=== PATIENT | female | born 1980 | race Caucasian/White ===

== ENCOUNTER 2016-10-07 11:06 | Inpatient (IN) | payer OTHER ==
[2016-10-07 11:06] VITALS: BMI 26.6
--- NOTE | 2016-10-07 11:49 | ED PDOC ---
HPI: Psych/Substance Abuse Time Seen by Provider: 10/07/16 11:16 Chief Complaint (Nursing): Psychiatric Evaluation Chief Complaint (Provider): psychiatric evaluation History Per: Patient History/Exam Limitations: no limitations Additional Complaint(s): Gibson Mccall is a 36 year old female, with a previous medical history of depression and ADHD with accordance to previous charts, who presents to the ED with complaints of anxiety and feeling uneasy. She reports feeling like "something was going to happen to her" which prompted ED visit. Patient reports suicidal ideation with a plan to overdose. Patient believes her medications are not working. PMD: none provided Past Medical History Reviewed: Historical Data, Nursing Documentation, Vital Signs Vital Signs: Last Vital Signs Temp 98.9 F 10/07/16 11:07 Pulse 84 10/07/16 11:07 Resp 19 10/07/16 11:07 BP 123/67 10/07/16 11:07 Pulse Ox 98 10/07/16 11:07 - Medical History PMH: Denies: Anxiety (Denies), Bipolar Disorder (Denies), Depression (Denies), Personality Disorder, Chronic Kidney Disease, Schizophrenia, Sexually Transmitted Disease - Family History Family History: States: Unknown Family Hx - Home Medications Home Medications: Ambulatory Orders Medication Instructions Recorded Benztropine [Cogentin] 1 mg PO BID #60 tab 09/27/16 Haloperidol [Haldol] 10 mg PO BID #60 tab 09/27/16 Merna Carbonate [Merna 600 mg PO BID #60 cap 09/27/16 Carbonate 300MG] traZODone [Desyrel] 100 mg PO HS #30 tab 09/27/16 - Allergies Allergies/Adverse Reactions: Allergies Allergy/AdvReac Type Severity Reaction Status Date / Time amphetamine [From Adderall] Allergy FATIGUE Verified 10/07/16 11:11 dextroamphetamine Allergy FATIGUE Verified 10/07/16 11:11 [From Adderall] Sulfa (Sulfonamide Allergy RASH Verified 10/07/16 11:11 Antibiotics) topiramate [From Topamax] AdvReac DIZZINESS Verified 10/07/16 11:11 Review of Systems ROS Statement: Except As Marked, All Systems Reviewed And Found Negative Psych: Positive for: Anxiety, Suicidal ideation Physical Exam - Reviewed Nursing Documentation Reviewed: Yes Vital Signs Reviewed: Yes - Physical Exam Appears: Positive for: Well, Non-toxic, No Acute Distress Head Exam: Positive for: ATRAUMATIC, NORMAL INSPECTION, NORMOCEPHALIC Skin: Positive for: Normal Color, Warm, DRY Eye Exam: Positive for: EOMI, Normal appearance, PERRL ENT: Positive for: Normal ENT Inspection Neck: Positive for: Normal, Painless ROM Cardiovascular/Chest: Positive for: Regular Rate, Rhythm Respiratory: Positive for: CNT, Normal Breath Sounds Gastrointestinal/Abdominal: Positive for: Normal Exam, Bowel Sounds, Soft Back: Positive for: Normal Inspection Extremity: Positive for: Normal ROM Neurologic/Psych: Positive for: Alert, Oriented, Mood/Affect (flat) - Laboratory Results Result Diagrams: 10/07/16 12:15 10/07/16 12:15 - ECG O2 Sat by Pulse Oximetry: 98 (RA) Pulse Ox Interpretation: Normal Medical Decision Making Medical Decision Making: Initial Impression: psychiatric evaluation Initial Plan: * acetaminophen * alcohol serum * urine drug screen * lithium * salicylate * urine * urine dipstick * urinalysis * reevaluation MEDICAL CLEARANCE Pt medically cleared for psychiatric admission. Scribe Attestation: Documented by Ashwini Harvey, acting as a scribe for Ashwini Diehl MD. Provider Scribe Attestation: All medical record entries made by the Scribe were at my direction and personally dictated by me. I have reviewed the chart and agree that the record accurately reflects my personal performance of the history, physical exam, medical decision making, and the department course for this patient. I have also personally directed, reviewed, and agree with the discharge instructions and disposition. Disposition - Clinical Impression Clinical Impression: Schizoaffective disorder - Patient ED Disposition Is Patient to be Admitted: Yes - Disposition Disposition Time: 13:10 Condition: STABLE - Pt Status Changed To: Hospital Disposition Of: Inpatient - Admit Certification Admit to Inpatient:: After my assessment, the patient will require hospitalization for at least two midnights. This is because of the severity of symptoms shown, intensity of services needed, and/or the medical risk in this patient being treated as an outpatient. - POA Present On Arrival: None
[2016-10-07 12:38] LABS: BASO # 0.1 K/uL (0.0-0.2); BASO % 0.5 % (0.0-2.0); EOS # 0.3 K/uL (0.0-0.7); EOS % 2.8 % (0.0-4.0); HEMATOCRIT 37.7 % (34.0-47.0); LYMPH # 1.5 K/uL (1.0-4.3); LYMPH % 12.5 % (20.0-40.0); MEAN CORPUSCULAR HEMOGLOBIN 28.3 pg (27.0-31.0); MEAN CORPUSCULAR HGB CONC 33.3 g/dL (33.0-37.0); MEAN PLATELET VOLUME 8.7 fl (7.2-11.7); MONO # 0.5 K/uL (0.0-0.8); MONO % 4.4 % (0.0-10.0); NEUT # 9.4 K/uL (1.8-7.0); NEUT % 79.8 % (50.0-75.0); NRBC % 0.1 % (0.0-0.0); RBC URINE 1 /hpf (0-3); RED CELL DISTRIBUTION WIDTH 13.9 % (11.5-14.5); URINE BACTERIA MANY (<OCC); URINE BILIRUBIN NEGATIVE (NEGATIVE); URINE BLOOD NEGATIVE (NEGATIVE); URINE COLOR STRAW (YELLOW); URINE GLUCOSE (UA) NEG (Normal); URINE KETONE NEGATIVE (NEGATIVE); URINE LEUKOCYTE ESTERASE TRACE Leu/uL (Negative); URINE PROTEIN NEGATIVE (NEGATIVE); URINE UROBILINOGEN 0.2-1.0 mg/dL (0.2-1.0); WBC URINE 2 /hpf (0-5); WHITE BLOOD COUNT 11.8 K/uL (4.8-10.8)
[2016-10-07 12:54] LABS: ALB/GLOB RATIO 1.3 (1.0-2.1); ALCOHOL SERUM < 10 mg/dl (0-10); ALKALINE PHOSPHATASE 82 U/L (38-126); ALT/SGPT 34 U/L (9-52); AST/SGOT 18 U/L (14-36); BILIRUBIN,TOTAL 0.4 mg/dl (0.2-1.3); BLOOD UREA NITROGEN 9 mg/dl (7-17); CALCIUM 9.9 mg/dL (8.4-10.2); CARBON DIOXIDE 24 mmol/L (22-30); CHLORIDE 104 mmol/L (98-107); GFR AFRICAN-AMERICAN > 60; GLUCOSE,RANDOM 108 mg/dL (65-105); LITHIUM 0.8 MMOL/L (0.6-1.2); POTASSIUM 4.3 MMOL/L (3.6-5.0); SODIUM 139 mmol/l (132-148); TOTAL PROTEIN 8.7 G/DL (6.3-8.2)
[2016-10-07 13:35] VITALS: O2SAT 100
[2016-10-07] MEDS ORDERED: Magnesium Hydroxide Susp 30 ml UD PO PRN (14:52)
[2016-10-07] MEDS ORDERED: DiphenhydrAMINE 50 mg/ml Inj IM PRN (14:52)
[2016-10-07] MEDS ORDERED: Alum-Mag Hydrox-Simethicone Susp (30 mL) PO PRN (14:52)
[2016-10-08 08:22] LABS: T4 7.51 ug/dl (5.5-11.0)
[2016-10-08 08:36] LABS: THYROID STIMULATING HORMONE 2.98 mIU/ML (0.46-4.68)
--- NOTE | 2016-10-08 11:22 | CP.PCM.CON ---
History of Present Illness - History of Present Illness History of Present Illness: 36 yo female with history of Depression admitted to psyche unit because of suicidal ideation. Review of Systems - Review of Systems All systems: reviewed and no additional remarkable complaints except (aside from those mentioned above, 12 point system review were negative by me) Past Patient History - Tetanus Immunizations Tetanus Immunization: Unknown - Past Medical History & Family History Past Family History: Reviewed and not pertinent - Past Social History Smoking Status: Never Smoked Alcohol: None Drugs: Denies - CARDIAC Hx Cardiac Disorders: No Hx Hypertension: No - PULMONARY Hx Respiratory Disorders: No Hx Tuberculosis: No - NEUROLOGICAL Hx Neurological Disorder: No HX Cerebrovascular Accident: No Hx Seizures: No - HEENT Hx HEENT Problems: No - RENAL Hx Chronic Kidney Disease: No - ENDOCRINE/METABOLIC Hx Endocrine Disorders: No - HEMATOLOGICAL/ONCOLOGICAL Hx Blood Disorders: No Hx Cancer: No Hx Human Immunodeficiency Virus (HIV): No - INTEGUMENTARY Hx Dermatological Problems: No - MUSCULOSKELETAL/RHEUMATOLOGICAL Hx Musculoskeletal Disorders: No - GASTROINTESTINAL Hx Gastrointestinal Disorders: No - GENITOURINARY/GYNECOLOGICAL Hx Genitourinary Disorders: No Hx Sexually Transmitted Disorders: No - PSYCHIATRIC Hx Anxiety: Yes Hx Substance Use: No - SURGICAL HISTORY Hx Surgeries: No - ANESTHESIA Hx Anesthesia: No Meds Allergies/Adverse Reactions: Allergies Allergy/AdvReac Type Severity Reaction Status Date / Time amphetamine [From Adderall] Allergy FATIGUE Verified 10/07/16 11:11 dextroamphetamine Allergy FATIGUE Verified 10/07/16 11:11 [From Adderall] Sulfa (Sulfonamide Allergy RASH Verified 10/07/16 11:11 Antibiotics) topiramate [From Topamax] AdvReac DIZZINESS Verified 10/07/16 11:11 - Medications Medications: Current Medications Acetaminophen (Tylenol 325mg Tab) 650 mg PO Q4 PRN PRN Reason: pain Al Hydrox/Mg Hydrox/Simethicone (Maalox Plus 30 Ml) 30 ml PO Q4 PRN PRN Reason: Dyspepsia Benztropine Mesylate (Cogentin) 1 mg PO BID HERNAN Last Admin: 10/08/16 08:58 Dose: 1 mg Diphenhydramine HCl (Benadryl) 50 mg IM Q6 PRN PRN Reason: Extrapyramidal S/S Unable PO Diphenhydramine HCl (Benadryl) 50 mg PO HS PRN PRN Reason: Sleep Last Admin: 10/07/16 18:00 Dose: 50 mg Haloperidol (Haldol) 5 mg PO Q4 PRN PRN Reason: Agitation Haloperidol (Haldol) 10 mg PO BID [facility] Last Admin: 10/08/16 08:52 Dose: 10 mg [place] Carbonate ([place] Carbonate 300mg) 600 mg PO BID [facility] Last Admin: 10/08/16 08:52 Dose: 600 mg Lorazepam (Ativan) 2 mg IM Q4 PRN PRN Reason: Anxiety/Agitation,Unable PO Lorazepam (Ativan) 2 mg PO Q4 PRN PRN Reason: Anxiety Magnesium Hydroxide (Milk Of Magnesia) 30 ml PO HS PRN PRN Reason: Constipation Trazodone HCl (Desyrel) 100 mg PO HS [facility] Last Admin: 10/07/16 22:03 Dose: 100 mg Physical Exam - Constitutional Appears: No Acute Distress - Head Exam Head Exam: ATRAUMATIC - Eye Exam Eye Exam: absent: Scleral icterus - ENT Exam ENT Exam: Mucous Membranes Moist - Neck Exam Neck exam: Negative for: Meningismus - Respiratory Exam Respiratory Exam: absent: Rhonchi, Wheezes, Respiratory Distress - Cardiovascular Exam Cardiovascular Exam: REGULAR RHYTHM, +S1, +S2 - GI/Abdominal Exam GI & Abdominal Exam: Soft. absent: Tenderness - Rectal Exam Rectal Exam: Deferred - Extremities Exam Extremities exam: Negative for: pedal edema - Back Exam Back exam: NORMAL INSPECTION - Neurological Exam Neurological exam: Alert, Oriented x3 - Psychiatric Exam Psychiatric exam: Normal Affect - Skin Skin Exam: Dry, Intact Results - Vital Signs Recent Vital Signs: Last Vital Signs Temp 96.8 F L 10/08/16 09:16 Pulse 75 10/08/16 09:16 Resp 18 10/08/16 09:16 BP 98/63 L 10/08/16 09:16 Pulse Ox 100 10/07/16 13:34 - Labs Result Diagrams: 10/07/16 12:15 10/07/16 12:15 Labs: Laboratory Results - last 24 hr 10/08/16 10/08/16 07:00 07:00 Triglycerides 166 H Cholesterol 185 LDL Cholesterol Direct 101 HDL Cholesterol 42 Thyroxine (T4) 7.51 TSH 3rd Generation 2.98 [place] 0.5 L Assessment & Plan (1) Suicidal ideation Status: Acute Comment: psyche is managing
--- NOTE | 2016-10-08 12:26 | PCM.PSYCH ---
Initial Psychiatric Evaluation - Initial Psychiatric Evaluation Type of Admission: Voluntary Legal Status: Capacity Chief Complaint (in patient's own words): "I want to go home" Patient's Reaction to Hospitalization: HPI: 36 yo female recently admitted to [facility] w/ diagnosis of brief psychotic disorder, self referred to the ER due to complaints that the [place] is causing slurred spe speech and anxiety. She told ER staff that she worries that she is being poisoned, but denies this to curriculum writer. She is requesting to be discharged and submitted a 48 hour letter. She is not agreeable to continuing the [place]. We discussed starting Depakote for mood stabilization. She denies ideation to harm herself or others. As per ER staff, she also reported racing thoughts, poor sleep. Collateral obtained from board worker in ER: COLLATERAL FROM PT'S BROTHER NEL CONTRERAS, , REVEALS THAT PRIOR TO AUGUST 2016 PT DID NOT HAVE A PSYCHIATRIC HX. HE REPORTED THAT THE PT HAD A COMPLETE NERVOUS/MENTAL BREAKDOWN A DIRECT RESULT OF THE PT GETTING . PT'S BROTHER REPORTED THAT THE PT HAS NOT SLEPT IN DAYS. HE REPORTED THAT THE WAS EXTREMELY ANXIOUS TODAY AND COULD NOT RELAX AND KEPT TRYING TO CALL 911. PT'S BROTHER KEPT TRYING TO CONVINCE HER TO CALM DOWN AND THAT THEY WOULD F/U WITH HER DOCTOR AND TOOK THE PT FOR A LONG WALK. HE REPORTED THAT IT DID NOT HELP BECAUSE SOON THE PT GOT HOME SHE CALLED 911 AND REPORTED THAT SHE WAS HAVING BAD THOUGHTS AND NEEDED TO COME TO THE HOSPITAL IMMEDIATELY. PT'S BROTHER FEELS THOUGH THE COMBINATION OF MEDICATIONS THAT THE PT IS ON ARE NOT GOOD FOR HER. HE DOES NOT BELIEVE THAT THE PT IS CAPABLE OF BEING DISCHARGED HOME IN THIS STATE AND THINKS THAT IT WOULD BE IN HER BEST INTEREST TO BE ADMITTED. PPHX: PT WAS RECENTLY DISCHARGED FROM [facility] ON 09/27/16. SHE WAS PRESCRIBED THE FOLLOWING PSYCHOTROPIC MEDICATIONS: COGENTIN 1MG BID, HALDOL 10MGS BID, LITHIUM 600MGS BID, TRAZADONE 100MGS HS SHX: Denies drugs/etoh/cig. Unemployed. FHx: Denies family h/o mental illness Current Medications: Active Medications Generic Name Dose Route Start Last Admin Trade Name Freq PRN Reason Stop Dose Admin Acetaminophen 650 mg 10/07/16 14:52 Tylenol 325mg Tab PO Q4 PRN pain Al Hydrox/Mg Hydrox/Simethicone 30 ml 10/07/16 14:52 Maalox Plus 30 Ml PO Q4 PRN Dyspepsia Benztropine Mesylate 1 mg 10/07/16 17:00 10/08/16 08:58 Cogentin PO 1 mg BID HERNAN Administration Diphenhydramine HCl 50 mg 10/07/16 14:52 Benadryl IM Q6 PRN Extrapyramidal S/S Unable PO Diphenhydramine HCl 50 mg 10/07/16 15:06 10/07/16 18:00 Benadryl PO 50 mg HS PRN Administration Sleep Haloperidol 5 mg 10/07/16 14:52 Haldol PO Q4 PRN Agitation Haloperidol 10 mg 10/07/16 17:00 10/08/16 08:52 Haldol PO 10 mg BID HERNAN Administration [place] Carbonate 600 mg 10/07/16 17:00 10/08/16 08:52 [place] Carbonate 300mg PO 600 mg BID HERNAN Administration Lorazepam 2 mg 10/07/16 14:52 Ativan IM Q4 PRN Anxiety/Agitation,Unable PO Lorazepam 2 mg 10/07/16 15:05 Ativan PO Q4 PRN Anxiety Magnesium Hydroxide 30 ml 10/07/16 14:52 Milk Of Magnesia PO HS PRN Constipation Trazodone HCl 100 mg 10/07/16 22:00 10/07/16 22:03 Desyrel PO 100 mg HS HERNAN Administration Past Psychiatric History - Past Psychiatric History Previous Treatment History: Inpatient Pertinent Medical Hx (Current Medical&Sleep Prob, Allergies): Allergies Allergy/AdvReac Type Severity Reaction Status Date / Time amphetamine [From Adderall] Allergy FATIGUE Verified 10/07/16 11:11 dextroamphetamine Allergy FATIGUE Verified 10/07/16 11:11 [From Adderall] Sulfa (Sulfonamide Allergy RASH Verified 10/07/16 11:11 Antibiotics) topiramate [From Topamax] AdvReac DIZZINESS Verified 10/07/16 11:11 Benztropine [Cogentin] 1 mg PO BID #60 tab 09/27/16 Haloperidol [Haldol] 10 mg PO BID #60 tab 09/27/16 [place] Carbonate [[place] Carbonate 300MG] 600 mg PO BID #60 cap 09/27/16 traZODone [Desyrel] 100 mg PO HS #30 tab 09/27/16 Mental Status Examination - Personal Presentation Personal Presentation: Looks stated age - Affect Affect: Broad - Motor Activity Motor Activity: Calm - Reliability in Providing Information Reliability in Providing Information: Fair - Speech Speech: Coherent - Mood Mood: Neutral - Formal Thought Process Formal Thought Process: No Impairment (Denies paranoia to curriculum writer) - Obsessions/Compulsions Obsessions: No Compulsions: No - Cognitive Functions Orientation: Person, Place, Situation, Time Sensorium: Alert Attention/Concentration: Attentive Estimate of Intelligence: Average Judgement: Imparied, as evidence by: Lack of insight into illness Memory: Recent intact, as evidence by: Ability to recall events of the day, Remote intact, as evidenced by: Abilit to recall sig. life events, Remote intact , as evidenced by: Ability to recall historical events - Risk Risk: Diminished functioning - Strength & Assets Inventory Strength & Assets Inventory: Family support, Cooperative DSM 5 DX - DSM 5 DSM 5 Diagnosis: Schizoaffective Disorder - Recommended/Plan of Treatment Treatment Recommendations and Plan of Treatment: -Admit to psychiatry -Continue COGENTIN 1MG BID, HALDOL 10MGS BID, TRAZADONE 100MGS HS -Stop LITHIUM 600MGS BID -Start Depakote 250 mg PO BID -Hospitalist consult -Possible discharge tomorrow after monitoring the patient for safety overnight; patient submitted a 48 hr letter today -Disposition planning Discharge Plan and Discharge Criteria: -Discharge when psychiatrically stable - Smoking Cessation Smoking Cessation Initiated: No Reason for not providing: Not indicated
[2016-10-08] MEDS: Divalproex 250 mg DR(BID formulation) PO SCH (17:29)
[2016-10-09] MEDS: Divalproex 250 mg DR(BID formulation) PO SCH ×2 (08:41→17:46)
--- NOTE | 2016-10-09 12:19 | PCM.PYCHPN ---
Psychiatric Progress Note - Psychiatric Progress Note Patient seen today, length of contact: in treatment team Patient Chief Complaint: i feel much better and can leave Problems Identified/Issues Discussed: pt has submitted a 48 hour notice. she states she is here because her speech was slurred with lithium. she states that she feels much better with the switch to depakote. pt denies side effects from the risperdal. she states she has an appointment with dr. rizo this . he has been on phone with family and states she lives with her family. there has been no agitation or aggressive behaviors. Medication Change: No Medical Record Reviewed: Yes Mental Status Examination - Cognitive Function Orientation: Person, Place, Situation, Time Memory: Intact Attention: WNL Concentration: WNL Association: WNL Fund of Knowledge: WN Decription of patient's judgement and insights: superficial insight - Mood Mood: Neutral - Affect Affect: Blunted Additional comments: pt with reduced arm movements, stiffened posture. denies these are a problem or a change since starting haldol - Speech Speech: Soft Additional comments: very brief answers, guarded - Formal Thought Process Formal Thought Process: No Impairment (Denies symptoms. appears to be paranoid/ internally preoccupied) - Suicidal Ideation Suicidal Ideation: No Plan: denies si/hi - Homicidal Ideation Homicidal Ideation: No Goal/Treatment Plan - Goal/Treatment Plan Need for Continued Stay: Remain at risks for inpatient hospitalization, Discharge may exacerbated symptoms Progress Toward Problem(s) and Goals/Treatment Plan: schizoaffective disorder, by history pt is refusing to stay in hospital, but does not seem to meet criteria for involuntary hospitalization does not want to lower/change haldol despite feedback about possible eps pt feels depakote is helpful sw to get collateral and cofirm pt's outpt appointment- will need to see dr. hein this week for optimal treatment likely discharge tomorrow prior to 48 hr notice expires Estimated Date of D/C: 10/10/16
[2016-10-09 16:46] VITALS: RESP 18; TEMP 97.7
[2016-10-10] MEDS: Divalproex 250 mg DR(BID formulation) PO SCH (08:23)
[2016-10-10 09:53] VITALS: BP 118/81; PULSE 87
--- NOTE | 2016-10-10 10:52 | PCM.PYCHDC ---
Mental Status Examination - Mental Status Examination Orientation: Person, Place, Situation, Time Memory: Intact Mood: Anxious Affect: Blunted Speech: Soft Attention: WNL Concentration: WNL Association: WNL Fund of Knowledge: WNL Formal Thought Process: No Impairment Description of patient's judgement and insight: superficial insight Psychotic Thoughts and Behaviors: denies a/v hallucinations, somewhat internally preoccupied Suicidal Ideation: No Current Homicidal Ideation?: No Plan: pt denies any suicidal or homicidal thoughts Discharge Summary - Discharge Note Reason for Hospitalization: pt was admitted after coming to ER c/o side effects with lithium Psychiatric History (includes Medical, Family, Personal Hx): recently admitted to [facility]- with schizoaffective disorder Laboratory Data: lithium 0.8 on admission Consultations:: List each consultation separately and include: 1. Reason for request. 2. Findings. 3. Follow-up Consultations: seen by hospitalist Summary of Hospital Course include:: 1. Description of specific treatment plan utilized for patients during their course of treatmen. 2. Summarize the time- course for resolution of acute symptoms and/or regressed behaviors. 3. Describe issues identified and worked on during hospitalization. 4. Describe medication utilized. 5. Describe medical problems identified and treated. 6. Reassessment of suicide risk Summary of Hospital Course: pt was admitted to [facility] and oriented to the unit. she was seen by the covering psychiatrist who discontinued the lithium and started the patient on depakote. the patient signed a 48 hour notice to leave the hospital. the patient participated in the treatment team. she was visible on the milieu, but she was interested in discharge and focused on leaving the hospital. her family was contacted by the treatment team and expressed concerns with her diagnosis of schizoaffective disorder. I attempted to talk to the pt about changing the haldol as she appeared to have some side effects- eps- psychomotor slowing, etc. the patient, however insisted that she would seen dr. rizo on 10/13. at the time of discharge, the patient was denying any suicidal or homicidal thoughts/plans or intent. - Final Diagnosis (DSM 5) Condition upon Discharge: STABLE DSM 5: psychotic disorder unspecified Disposition: HOME/ ROUTINE Follow-up Treatment Plan: follow up with dr. rizo on 10/13 take medications as prescribed- psychiatrist should check depakote level and also may consider decreasing the haldol dose do not use alcohol, tobacco or other illicit substances call 911 if any suicidal or homicidal thoughts, plans or intent. Prescriptions/Medication Reconciliation: Divalproex [Angelica HERNANDEZ(*BID*)] 250 mg PO BID #60 tcp - Smoking Cessation Smoking Cessation Medication prescribed: No Reason for not providing: declined - Antipsychotic Medications Pt discharged on 2 or more routine antipsychotic medications: No
== END 2016-10-10 10:32 | disposition home or self-care (01) | DRG 885 ==
LOC: H.ER 11:06 → H.ERHOLD 13:08 → H.PSYCH 14:38
PROVIDERS: ADMIT Psychiatry & Neurology Psychiatry; ATTEND Psychiatry & Neurology Psychiatry
PROC: GZHZZZZ Group Psychotherapy (ICD-10-PCS; principal; 2016-10-07)
DX: F29 Unspecified psychosis not due to a substance or known physiological condition (principal); R45.851 Suicidal ideations